=== PATIENT | female | born 1995 | race American Indian/Alaskan Native ===

== ENCOUNTER 2018-10-09 20:28 | Emergency (ER) | payer SELFPAY ==
--- NOTE | 2018-10-09 21:18 | EDPHYS ---
Physician Documentation [facility] Name: Aleyda Barker Age: 23 yrs Sex: Female : 1995 Arrival Date: 10/09/2018 Time: 20:30 Bed 9 Private MD: ED Physician Sudeep Ross HPI: 10/09 21:13 This 23 yrs old Female presents to ER via Ambulatory with complaints of Foot Pain, jr8 ABCESS. 21:13 Onset: The symptoms/episode began/occurred gradually, 2 day(s) ago. Modifying factors: jr8 The symptoms are alleviated by nothing. the symptoms are aggravated by movement. Associated signs and symptoms: The patient has no apparent associated signs or symptoms. Severity of symptoms: At their worst the symptoms were mild, in the emergency department the symptoms are unchanged. The patient has not experienced similar symptoms in the past. The patient has not recently seen a physician. Patient had just returned to work and had been off for a while. Got a blister on top of 5th digit right foot. Now thinks it is infected. 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 - Social history:: Smoking status: Patient uses tobacco products, denies chronic smoking, but will smoke occasionally. - Ebola Screening: : Patient negative for fever greater than or equal to 101.5 degrees Fahrenheit, and additional compatible Ebola Virus Disease symptoms Patient denies exposure to infectious person Patient denies travel to an Ebola-affected area in the 21 days before illness onset No symptoms or risks identified at this time. ROS: 21:13 Eyes: Negative for injury, pain, redness, and discharge, ENT: Negative for injury, jr8 pain, and discharge, Neck: Negative for injury, pain, and swelling, Cardiovascular: Negative for chest pain, palpitations, and edema, Respiratory: Negative for shortness of breath, cough, wheezing, and pleuritic chest pain, Abdomen/GI: Negative for abdominal pain, nausea, vomiting, diarrhea, and constipation, Back: Negative for injury and pain, MS/Extremity: Negative for injury and deformity, Neuro: Negative for headache, weakness, numbness, tingling, and seizure. 21:13 Skin: Positive for lesions, of the right fifth toe. Exam: 21:13 Constitutional: This is a well developed, well nourished patient who is awake, alert, jr8 and in no acute distress. Cardiovascular: Regular rate and rhythm with a normal S1 and S2. No gallops, murmurs, or rubs. Normal PMI, no JVD. No pulse deficits. Respiratory: Lungs have equal breath sounds bilaterally, clear to auscultation and percussion. No rales, rhonchi or wheezes noted. No increased work of breathing, no retractions or nasal flaring. MS/ Extremity: Pulses equal, no cyanosis. Neurovascular intact. Full, normal range of motion. Neuro: Awake and alert, GCS 15, oriented to person, place, time, and situation. Cranial nerves II-XII grossly intact. Motor strength 5/5 in all extremities. Sensory grossly intact. Cerebellar exam normal. Normal gait. 21:13 Skin: Patient has small blister to right 5th digit top of toe. Mild purulent discharge noted. No surrounding cellulitis . Vital Signs: 20:55 BP 107 / 71; Pulse 81; Resp 16; Temp 98.3; Pulse Ox 98% on R/A; Weight 113.4 kg; Height aj 5 ft. 7 in. (170.18 cm); 21:24 BP 101 / 70; Pulse 84; Resp 17; Pulse Ox 99% on R/A; aj 20:55 Body Mass Index 39.16 (113.40 kg, 170.18 cm) MDM: 20:39 Patient medically screened. [facility] 21:16 Data reviewed: vital signs, nurses notes, lab test result(s), and as a result, I will [facility] discharge patient. Data interpreted: Pulse oximetry: on room air is 98 %. Interpretation: normal. Counseling: I had a detailed discussion with the patient and/or guardian regarding: the historical points, exam findings, and any diagnostic results supporting the discharge/admit diagnosis, lab results, the need for outpatient follow up, a family practitioner, to return to the emergency department if symptoms worsen or persist or if there are any questions or concerns that arise at home. 10/09 21:16 Order name: Wound Culture [facility] Administered Medications: No medications were administered Disposition: 10/09/18 21:17 Discharged to Home. Impression: Local infection of the skin and subcutaneous tissue, unspecified. - Condition is Stable. - Discharge Instructions: Skin Abscess. - Prescriptions for Bactrim DS 800- 160 mg Oral Tablet - take 1 tablet by ORAL route every 12 hours for 10 days; 20 tablet. - Work release form, Medication Reconciliation Form, Thank You Letter, Antibiotic Education, Prescription Opioid Use form. - Follow up: Private Physician; When: 5 - 6 days; Reason: Wound Recheck, Recheck today's complaints, Continuance of care, Re-evaluation by your physician. - Problem is new. - Symptoms have improved. Addendum: 10/10/2018 22:31 Co-signature as Attending Physician, Sudeep Ross MD I agree with the assessment and t w4 plan of care. Signatures: Dispatcher [employer] EDGladys Wolf RN RN Gilberto Rodríguez, PA PA jr8 Sudeep Ross MD MD tw4 Corrections: (The following items were deleted from the chart) 10/09 21:27 21:17 10/09/2018 21:17 Discharged to Home. Impression: Local infection of the skin and aj subcutaneous tissue, unspecified. Condition is Stable. Forms are Medication Reconciliation Form, Thank You Letter, Antibiotic Education, Prescription Opioid Use. Follow up: Private Physician; When: 5 - 6 days; Reason: Wound Recheck, Recheck today's complaints, Continuance of care, Re-evaluation by your physician. Problem is new. Symptoms have improved. jr8
--- NOTE | 2018-10-09 21:18 | ER ---
Nurse's Notes [facility] Name: Aleyda Barker Age: 23 yrs Sex: Female : 1995 Arrival Date: 10/09/2018 Time: 20:30 Bed 9 Private MD: Diagnosis: Local infection of the skin and subcutaneous tissue, unspecified Presentation: 10/09 20:54 Presenting complaint: Patient states: Blister to right 5 th toe for 2 days. Transition aj of care: patient was not received from another setting of care. Onset of symptoms was October 07, 2018. Risk Assessment: Do you want to hurt yourself or someone else? Patient reports no desire to harm self or others. Initial Sepsis Screen: Does the patient meet any 2 criteria? No. Patient's initial sepsis screen is negative. Does the patient have a suspected source of infection? No. Patient's initial sepsis screen is negative. Care prior to arrival: None. 20:54 Method Of Arrival: Ambulatory aj 20:54 Acuity: HOLLAND 4 aj Triage Assessment: 20:55 General: Appears in no apparent distress. comfortable, Behavior is calm, cooperative, aj appropriate for age. Pain: Complains of pain in right fifth toe. Neuro: Level of Consciousness is awake, alert, obeys commands, Oriented to person, place, time, situation, Appropriate for age. Respiratory: Airway is patent Trachea midline Respiratory effort is even, unlabored, Respiratory pattern is regular, symmetrical. Derm: Skin is intact, is healthy with good turgor, Skin is pink, warm \T\ dry. normal. Derm: Wound noted right fifth toe. 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 - Social history:: Smoking status: Patient uses tobacco products, denies chronic smoking, but will smoke occasionally. - Ebola Screening: : Patient negative for fever greater than or equal to 101.5 degrees Fahrenheit, and additional compatible Ebola Virus Disease symptoms Patient denies exposure to infectious person Patient denies travel to an Ebola-affected area in the 21 days before illness onset No symptoms or risks identified at this time. Screenin:24 Abuse screen: Denies threats or abuse. Denies injuries from another. Nutritional aj screening: No deficits noted. Tuberculosis screening: No symptoms or risk factors identified. Fall Risk None identified. Assessment: 21:24 Reassessment: See triage. aj Vital Signs: 20:55 BP 107 / 71; Pulse 81; Resp 16; Temp 98.3; Pulse Ox 98% on R/A; Weight 113.4 kg; Height aj 5 ft. 7 in. (170.18 cm); 21:24 BP 101 / 70; Pulse 84; Resp 17; Pulse Ox 99% on R/A; aj 20:55 Body Mass Index 39.16 (113.40 kg, 170.18 cm) aj ED Course: 20:30 Patient arrived in ED. al2 20:39 Gilberto Kelly PA is PHCP. jr8 20:39 Sudeep Ross MD is Attending Physician. jr8 20:54 Gladys Lerner, RN is Primary Nurse. aj 20:55 Triage completed. aj 20:55 Arm band placed on left wrist. Patient placed in an exam room. aj 21:24 Patient has correct armband on for positive identification. aj 21:24 No provider procedures requiring assistance completed. Patient did not have IV access aj during this emergency room visit. 21:27 Wound Culture Sent. aj Administered Medications: No medications were administered Outcome: 21:17 Discharge ordered by . jr8 21:24 Discharged to home ambulatory. aj 21:24 Condition: good 21:24 Discharge instructions given to patient, Instructed on discharge instructions, follow up and referral plans. Demonstrated understanding of instructions, follow-up care, medications, Prescriptions given X 1. 21:27 Patient left the ED. aj Addendum: 10/14/2018 07:46 Addendum: Culture Results: Positive wound culture. Phone call Attempt #[phone], left a a5 voicemail. 10/15/2018 11:13 Addendum: Culture Results: Phone call Attempt #[phone], left voicemail. a a5 Signatures: Gladys Lerner, RN RN Idania Pierre RN RN aaGilberto Hewitt PA PA jr8 Love, Angelica al2
== END 2018-10-09 21:27 | disposition home or self-care (01) ==
LOC: ER 20:28
DX: M79.674 Pain in right toe(s) (principal); L08.9 Local infection of the skin and subcutaneous tissue, unspecified; Z72.0 Tobacco use
CPT/HCPCS: 87070; 87205; 99283

== ENCOUNTER 2018-12-01 14:47 | Emergency (ER) | payer SELFPAY ==
[2018-12-01] MEDS ORDERED: FLUCONAZOLE 100 MG TAB ONE (15:40)
--- NOTE | 2018-12-01 15:49 | EDPHYS ---
Physician Documentation [facility] Name: Aleyda Barker Age: 23 yrs Sex: Female : 1995 Arrival Date: 12/01/2018 Time: 14:49 Bed 9 Private MD: ED Physician Miki Juarez HPI: 12/02 02:17 This 23 yrs old Other Female presents to ER via Ambulatory with complaints of Rash. snw 02:17 The patient's rash thought to be caused by Dermatitis. The rash is located on the snw pelvis. The rash can be described as erythematous, macular, patchy. Onset: The symptoms/episode began/occurred suddenly, and became persistent. Associated signs and symptoms: Pertinent positives: burning sensation, itching. Severity of symptoms: At their worst the symptoms were moderate in the emergency department the symptoms are unchanged. Treatment given at home: OTC lotion/cream. The patient has experienced a previous episode. It is unknown whether or not the patient has recently seen a physician. Historical: - Allergies: 12/01 14:55 No Known Allergies; sv - PMHx: 14:55 None; sv - PSHx: 14:55 None; sv - Immunization history:: Adult Immunizations up to date. - Social history:: Smoking status: Patient/guardian denies using tobacco. - Ebola Screening: : Patient negative for fever greater than or equal to 101.5 degrees Fahrenheit, and additional compatible Ebola Virus Disease symptoms Patient denies exposure to infectious person Patient denies travel to an Ebola-affected area in the 21 days before illness onset No symptoms or risks identified at this time. ROS: 12/02 02:11 Constitutional: Negative for fever, chills, and weight loss, Eyes: Negative for injury, snw pain, redness, and discharge, ENT: Negative for injury, pain, and discharge, Neck: Negative for injury, pain, and swelling, Cardiovascular: Negative for chest pain, palpitations, and edema, Respiratory: Negative for shortness of breath, cough, wheezing, and pleuritic chest pain, Abdomen/GI: Negative for abdominal pain, nausea, vomiting, diarrhea, and constipation, Back: Negative for injury and pain, MS/Extremity: Negative for injury and deformity, Skin: Negative for injury, rash, and discoloration, Neuro: Negative for headache, weakness, numbness, tingling, and seizure, Psych: Negative for depression, anxiety, suicide ideation, homicidal ideation, and hallucinations. : Positive for perineal rash with itching and tenderness. Exam: 02:11 Constitutional: This is a well developed, well nourished patient who is awake, alert, snw and in no acute distress. Head/Face: Normocephalic, atraumatic. Eyes: Pupils equal round and reactive to light, extra-ocular motions intact. Lids and lashes normal. Conjunctiva and sclera are non-icteric and not injected. Cornea within normal limits. Periorbital areas with no swelling, redness, or edema. ENT: Nares patent. No nasal discharge, no septal abnormalities noted. Tympanic membranes are normal and external auditory canals are clear. Oropharynx with no redness, swelling, or masses, exudates, or evidence of obstruction, uvula midline. Mucous membranes moist. Neck: Trachea midline, no thyromegaly or masses palpated, and no cervical lymphadenopathy. Supple, full range of motion without nuchal rigidity, or vertebral point tenderness. No Meningismus. Acanthosis nigricans Chest/axilla: Normal chest wall appearance and motion. Nontender with no deformity. No lesions are appreciated. Cardiovascular: Regular rate and rhythm with a normal S1 and S2. No gallops, murmurs, or rubs. Normal PMI, no JVD. No pulse deficits. Respiratory: Lungs have equal breath sounds bilaterally, clear to auscultation and percussion. No rales, rhonchi or wheezes noted. No increased work of breathing, no retractions or nasal flaring. Abdomen/GI: Soft, non-tender, with normal bowel sounds. No distension or tympany. No guarding or rebound. No evidence of tenderness throughout. Back: No spinal tenderness. No costovertebral tenderness. Full range of motion. MS/ Extremity: Pulses equal, no cyanosis. Neurovascular intact. Full, normal range of motion. Neuro: Awake and alert, GCS 15, oriented to person, place, time, and situation. Cranial nerves II-XII grossly intact. Motor strength 5/5 in all extremities. Sensory grossly intact. Cerebellar exam normal. Normal gait. Psych: Awake, alert, with orientation to person, place and time. Behavior, mood, and affect are within normal limits. 02:11 Skin: Appearance: normal except for affected area, groin with tinea appearing rash, may just be acanthosis as well, FSBS within normal. Vital Signs: 12/01 14:55 BP 99 / 57; Pulse 89; Resp 20; Temp 98; Pulse Ox 100% ; Weight 99.79 kg; Height 5 ft. 6 sv in. (167.64 cm); Pain 0/10; 16:00 BP 100 / 60; Pulse 89; Resp 20; Temp 98; Pulse Ox 100% ; dm5 14:55 Body Mass Index 35.51 (99.79 kg, 167.64 cm) sv MDM: 15:06 Patient medically screened. snw 12/02 02:16 Data reviewed: vital signs, nurses notes. Data interpreted: Pulse oximetry: on room air snw is 100 %. Interpretation: normal. Counseling: I had a detailed discussion with the patient and/or guardian regarding: the historical points, exam findings, and any diagnostic results supporting the discharge/admit diagnosis, the need for outpatient follow up, to return to the emergency department if symptoms worsen or persist or if there are any questions or concerns that arise at home. Special discussion: Based on the history and exam findings, there is no indication for further emergent testing or inpatient evaluation. I discussed with the patient/guardian the need to see the industrial maintenance technician for further evaluation of the symptoms. 12/01 15:11 Order name: MAURI; Complete Time: 15:17 kdr Administered Medications: 12/01 15:38 Drug: DiFLUcan 200 mg Route: PO; dm5 16:30 Follow up: Response: No adverse reaction; No change in condition dm5 Point of Care Testing: Blood Glucose: 15:17 Blood Glucose: 108 mg/dL; ms Ranges: Critical Glucose Levels:Adult <50 mg/dl or >400 mg/dl <40 mg/dl or >180 mg/dl Disposition: 12/01/18 15:48 Discharged to Home. Impression: Rash and other nonspecific skin eruption, Candidiasis, unspecified. - Condition is Stable. - Discharge Instructions: Rash, Tinea Versicolor, [id number]. - Prescriptions for Clotrimazole 1 % Topical Cream - Apply to affected area 1 application by TOPICAL route every 12 hours; 15 gram. Diflucan 150 mg Oral Tablet - take 1 tablet by ORAL route one time for 1 day Take next Tuesday; 1 tablet. Zyrtec 10 mg Oral Tablet - take 1 tablet by ORAL route once daily As needed; 20 tablet. - Work release form, Medication Reconciliation Form, Thank You Letter, Antibiotic Education, Prescription Opioid Use form. - Follow up: Emergency Department; When: As needed; Reason: Worsening of condition. Follow up: Private Physician; When: 2 - 3 days; Reason: Recheck today's complaints, Continuance of care, Re-evaluation by your physician. Addendum: 12/04/2018 07:25 Co-signature as Attending Physician, Miki Juarez MD I agree with the assessment and k dr plan of care. Signatures: Allyson Pandya, RN RN dm5 Shannon Avalos RN Miki Katz MD MD [facility] Anel Locke, SNUFF MAKER-C SNUFF MAKER-[facility] Blanca Riggs Corrections: (The following items were deleted from the chart) 12/01 16:07 15:48 12/01/2018 15:48 Discharged to Home. Impression: Rash and other nonspecific skin eb eruption; Candidiasis, unspecified. Condition is Stable. Forms are Medication Reconciliation Form, Thank You Letter, Antibiotic Education, Prescription Opioid Use. Follow up: Emergency Department; When: As needed; Reason: Worsening of condition. Follow up: Private Physician; When: 2 - 3 days; Reason: Recheck today's complaints, Continuance of care, Re-evaluation by your physician. snw
--- NOTE | 2018-12-01 15:49 | ER ---
Nurse's Notes [facility] Name: Aleyda Barker Age: 23 yrs Sex: Female : 1995 Arrival Date: 12/01/2018 Time: 14:49 Bed 9 Private MD: Diagnosis: Rash and other nonspecific skin eruption;Candidiasis, unspecified Presentation: 12/01 14:54 Presenting complaint: Patient states: right groin rash and itching x 1 month. Reports sv she has been seen for it before and was told it was jock itch and to use OTC meds, but it has no improved. Transition of care: patient was not received from another setting of care. Onset of symptoms was October 2018. Care prior to arrival: None. 14:54 Method Of Arrival: Ambulatory sv 14:54 Acuity: HOLLAND 5 sv 16:00 Risk Assessment: Do you want to hurt yourself or someone else? Patient reports no dm5 desire to harm self or others. Initial Sepsis Screen: Does the patient meet any 2 criteria? No. Patient's initial sepsis screen is negative. Does the patient have a suspected source of infection? No. Patient's initial sepsis screen is negative. Triage Assessment: 14:56 General: Appears in no apparent distress. comfortable, Behavior is calm, cooperative, sv appropriate for age. Neuro: Level of Consciousness is awake, alert, obeys commands, Oriented to person, place, time, situation, Gait is steady. Respiratory: Respiratory effort is even, unlabored, Respiratory pattern is regular, symmetrical. Derm: Reports itching, rash. Historical: - Allergies: 14:55 No Known Allergies; sv - PMHx: 14:55 None; sv - PSHx: 14:55 None; sv - Immunization history:: Adult Immunizations up to date. - Social history:: Smoking status: Patient/guardian denies using tobacco. - Ebola Screening: : Patient negative for fever greater than or equal to 101.5 degrees Fahrenheit, and additional compatible Ebola Virus Disease symptoms Patient denies exposure to infectious person Patient denies travel to an Ebola-affected area in the 21 days before illness onset No symptoms or risks identified at this time. Screenin:00 Abuse screen: Denies threats or abuse. Denies injuries from another. Nutritional dm5 screening: No deficits noted. Tuberculosis screening: No symptoms or risk factors identified. Fall Risk None identified. Assessment: 15:15 General: Appears in no apparent distress. Pain: Complains of pain in right femoral dm5 area. Neuro: Level of Consciousness is awake, alert, obeys commands, Oriented to person, place, time, situation. Respiratory: Airway is patent Respiratory effort is even, unlabored, relaxed, Respiratory pattern is regular, symmetrical. Derm: Rash noted that is itchy, red. Vital Signs: 14:55 BP 99 / 57; Pulse 89; Resp 20; Temp 98; Pulse Ox 100% ; Weight 99.79 kg; Height 5 ft. 6 sv in. (167.64 cm); Pain 0/10; 16:00 BP 100 / 60; Pulse 89; Resp 20; Temp 98; Pulse Ox 100% ; dm5 14:55 Body Mass Index 35.51 (99.79 kg, 167.64 cm) sv ED Course: 14:49 Patient arrived in ED. as 14:55 Triage completed. sv 14:56 Arm band placed on Patient placed in waiting room, Patient notified of wait time. sv 14:58 Anel Locke [facility]C [facility]. snw 14:58 Miki Juarez MD is Attending Physician. snw 15:37 Allyson Pandya, HEMAL is Primary Nurse. dm5 16:00 Patient has correct armband on for positive identification. dm5 16:00 No provider procedures requiring assistance completed. Patient did not have IV access dm5 during this emergency room visit. Administered Medications: 15:38 Drug: DiFLUcan 200 mg Route: PO; dm5 16:30 Follow up: Response: No adverse reaction; No change in condition dm5 Point of Care Testing: Blood Glucose: 15:17 Blood Glucose: 108 mg/dL; ms Ranges: Outcome: 15:48 Discharge ordered by . snw 16:00 Discharged to home ambulatory. dm5 16:00 Condition: good 16:00 Discharge instructions given to patient, Instructed on discharge instructions, follow up and referral plans. medication usage, Demonstrated understanding of instructions, follow-up care, medications. 16:07 Patient left the ED. eb Signatures: Allyson Pandya, RN HEMAL dm5 Shannon Avalos RN RN sv Anel Locke FNP-C GLOST KILN OPERATOR-Iva Latham Maria ms Botello, Elizabeth eb Corrections: (The following items were deleted from the chart) 14:57 14:55 Pulse 89bpm; Resp 20bpm; Pulse Ox 100%; Temp 98F; 99.79 kg; Height 5 ft. 6 in.; sv BMI: 35.5; Pain 0/10; sv
== END 2018-12-01 16:07 | disposition home or self-care (01) ==
LOC: ER 14:47
DX: B37.9 Candidiasis, unspecified (principal)
CPT/HCPCS: 82962; 99283

== ENCOUNTER 2018-12-06 20:18 | Emergency (ER) | payer SELFPAY ==
--- NOTE | 2018-12-06 20:35 | EDPHYS ---
Physician Documentation [facility] Name: Aleyda Barker Age: 23 yrs Sex: Female : 1995 Arrival Date: 12/06/2018 Time: 20:25 Bed Treatment Private MD: ED Physician Brodie Horne HPI: 12/06 20:32 This 23 yrs old Other Female presents to ER via Unassigned with complaints of Back Pain.kb 20:32 The patient presents with pain that is acute. The symptoms are located in the low back. kb Onset: The symptoms/episode began/occurred 2 day(s) ago. The pain does not radiate. Associated signs and symptoms: The patient has no apparent associated signs or symptoms. The problem was sustained when lifting heavy object. Modifying factors: The patient symptoms are alleviated by nothing, the patient symptoms are aggravated by any movement. Severity of symptoms: At their worst the symptoms were moderate, in the emergency department the symptoms have resolved, 1 day(s) prior to arrival. The patient has not experienced similar symptoms in the past. The patient has not recently seen a physician. Pt reports she pulled something in her back 2 days ago at work and had pain. Reports pain resolved yesterday, but her boss wanted her to get it checked out before she returned.. Historical: - Allergies: 20:28 No Known Allergies; jb4 - Home Meds: 20:28 None [Active]; jb4 - PMHx: 20:28 None; jb4 - PSHx: 20:28 None; jb4 - Immunization history:: Adult Immunizations up to date, Flu vaccine is up to date. - Social history:: Smoking status: Patient/guardian denies using tobacco. - Ebola Screening: : No symptoms or risks identified at this time. ROS: 20:32 Constitutional: Negative for fever, chills, and weight loss, Cardiovascular: Negative kb for chest pain, palpitations, and edema, Respiratory: Negative for shortness of breath, cough, wheezing, and pleuritic chest pain, Abdomen/GI: Negative for abdominal pain, nausea, vomiting, diarrhea, and constipation, : Negative for injury, bleeding, discharge, and swelling, MS/Extremity: Negative for injury and deformity, Skin: Negative for injury, rash, and discoloration, Neuro: Negative for headache, weakness, numbness, tingling, and seizure. 20:32 Back: Positive for pain at rest, pain with movement, of the low back area. Exam: 20:32 Constitutional: This is a well developed, well nourished patient who is awake, alert, kb and in no acute distress. Head/Face: Normocephalic, atraumatic. Neck: Trachea midline, no thyromegaly or masses palpated, and no cervical lymphadenopathy. Supple, full range of motion without nuchal rigidity, or vertebral point tenderness. No Meningismus. Chest/axilla: Normal chest wall appearance and motion. Nontender with no deformity. No lesions are appreciated. Cardiovascular: Regular rate and rhythm with a normal S1 and S2. No gallops, murmurs, or rubs. Normal PMI, no JVD. No pulse deficits. Respiratory: Lungs have equal breath sounds bilaterally, clear to auscultation and percussion. No rales, rhonchi or wheezes noted. No increased work of breathing, no retractions or nasal flaring. Abdomen/GI: Soft, non-tender, with normal bowel sounds. No distension or tympany. No guarding or rebound. No evidence of tenderness throughout. Back: No spinal tenderness. No costovertebral tenderness. Full range of motion. Skin: Warm, dry with normal turgor. Normal color with no rashes, no lesions, and no evidence of cellulitis. MS/ Extremity: Pulses equal, no cyanosis. Neurovascular intact. Full, normal range of motion. Neuro: Awake and alert, GCS 15, oriented to person, place, time, and situation. Cranial nerves II-XII grossly intact. Motor strength 5/5 in all extremities. Sensory grossly intact. Cerebellar exam normal. Normal gait. Vital Signs: 20:28 BP 123 / 65; Pulse 72; Resp 16; Temp 97.3(O); Pulse Ox 97% on R/A; Weight 99.79 kg (R); jb4 Height 5 ft. 7 in. (170.18 cm) (R); Pain 2/10; 20:28 Body Mass Index 34.46 (99.79 kg, 170.18 cm) jb4 MDM: 20:28 Patient medically screened. kb 20:33 Data reviewed: vital signs, nurses notes. Data interpreted: Pulse oximetry: on room air kb is 100 %. Interpretation: normal. Counseling: I had a detailed discussion with the patient and/or guardian regarding: the historical points, exam findings, and any diagnostic results supporting the discharge/admit diagnosis, the need for outpatient follow up, a family practitioner, to return to the emergency department if symptoms worsen or persist or if there are any questions or concerns that arise at home. Administered Medications: No medications were administered Disposition: 23:19 Co-signature as Attending Physician, Brodie Horne MD. Disposition: 12/06/18 20:34 Discharged to Home. Impression: Low back pain. - Condition is Stable. - Discharge Instructions: Back Pain, Adult, [id number], Back Exercises, [id number]. - Work release form, Medication Reconciliation Form, Thank You Letter, Antibiotic Education, Prescription Opioid Use form. - Follow up: Emergency Department; When: As needed; Reason: Worsening of condition. Follow up: Private Physician; When: 2 - 3 days; Reason: Recheck today's complaints, Continuance of care, Re-evaluation by your physician. Signatures: Sujatha Salas FNP-C FNP-Rajat Dyer RN RN jb4 Brodie Horne MD MD Corrections: (The following items were deleted from the chart) 20:47 20:34 12/06/2018 20:34 Discharged to Home. Impression: Low back pain. Condition is jb4 Stable. Forms are Medication Reconciliation Form, Thank You Letter, Antibiotic Education, Prescription Opioid Use. Follow up: Emergency Department; When: As needed; Reason: Worsening of condition. Follow up: Private Physician; When: 2 - 3 days; Reason: Recheck today's complaints, Continuance of care, Re-evaluation by your physician. kb
--- NOTE | 2018-12-06 20:47 | ER ---
Nurse's Notes [facility] Name: Aleyda Barker Age: 23 yrs Sex: Female : 1995 Arrival Date: 12/06/2018 Time: 20:25 Bed Treatment Private MD: Diagnosis: Low back pain Presentation: 12/06 20:28 Presenting complaint: Patient states: I was at work Tuesday, and we were lifting objects jb4 and I think I pulled a muscle in my back. 20:28 Transition of care: patient was not received from another setting of care. Onset of jb4 symptoms was December 04, 2018. Risk Assessment: Do you want to hurt yourself or someone else? Patient reports no desire to harm self or others. Initial Sepsis Screen: Does the patient meet any 2 criteria? No. Patient's initial sepsis screen is negative. Does the patient have a suspected source of infection? No. Patient's initial sepsis screen is negative. Care prior to arrival: None. 20:28 Method Of Arrival: Ambulatory jb4 20:28 Acuity: HOLLAND 4 jb4 Triage Assessment: 20:28 General: Appears in no apparent distress. comfortable, Behavior is calm, cooperative, jb4 appropriate for age. Pain: Complains of pain in back Pain does not radiate. Pain currently is 2 out of 10 on a pain scale. EENT: No signs and/or symptoms were reported regarding the EENT system. Neuro: Level of Consciousness is awake, alert, obeys commands, Oriented to person, place, time, situation. Cardiovascular: Patient's skin is warm and dry. Respiratory: Airway is patent Respiratory effort is even, unlabored, Respiratory pattern is regular, symmetrical. GI: No signs and/or symptoms were reported involving the gastrointestinal system. : No signs and/or symptoms were reported regarding the genitourinary system. Derm: Skin is intact, Skin is pink, warm \T\ dry. Musculoskeletal: Circulation, motion, and sensation intact. Range of motion: intact in all extremities. Historical: - Allergies: 20:28 No Known Allergies; jb4 - Home Meds: 20:28 None [Active]; jb4 - PMHx: 20:28 None; jb4 - PSHx: 20:28 None; jb4 - Immunization history:: Adult Immunizations up to date, Flu vaccine is up to date. - Social history:: Smoking status: Patient/guardian denies using tobacco. - Ebola Screening: : No symptoms or risks identified at this time. Screenin:45 Abuse screen: Denies threats or abuse. Nutritional screening: No deficits noted. jb4 Tuberculosis screening: No symptoms or risk factors identified. Fall Risk None identified. Assessment: 20:45 General: see triage assessment.. Neuro: Level of Consciousness is awake, alert, obeys jb4 commands, Oriented to person, place, time, situation. Vital Signs: 20:28 BP 123 / 65; Pulse 72; Resp 16; Temp 97.3(O); Pulse Ox 97% on R/A; Weight 99.79 kg (R); jb4 Height 5 ft. 7 in. (170.18 cm) (R); Pain 2/10; 20:28 Body Mass Index 34.46 (99.79 kg, 170.18 cm) jb4 ED Course: 20:25 Patient arrived in ED. 20:28 Sujatha Salas FNP-C is [facility]. kb 20:28 Brodie Horne MD is Attending Physician. kb 20:28 Arm band placed on left wrist. jb4 20:42 Rajat Meeks, RN is Primary Nurse. jb4 20:43 Triage completed. jb4 20:45 Patient has correct armband on for positive identification. Bed in low position. Call jb4 light in reach. Side rails up X 1. 20:45 No provider procedures requiring assistance completed. Patient did not have IV access jb4 during this emergency room visit. Administered Medications: No medications were administered Outcome: 20:34 Discharge ordered by . kb 20:45 Discharged to home ambulatory. jb4 20:45 Condition: stable 20:45 Discharge instructions given to patient, Instructed on discharge instructions, follow up and referral plans. medication usage, Demonstrated understanding of instructions, follow-up care, medications. 20:47 Patient left the ED. jb4 Signatures: Sujatha Salas FNP-C FNP-Cheryl Heath James, RN RN jb4
== END 2018-12-06 20:47 | disposition home or self-care (01) ==
LOC: ER 20:18
DX: M54.5 Low back pain (principal); X50.0XXA Overexertion from strenuous movement or load, initial encounter; Y93.89 Activity, other specified; Y92.9 Unspecified place or not applicable
CPT/HCPCS: 99281

== ENCOUNTER 2018-12-12 19:24 | Emergency (ER) | payer SELFPAY ==
--- NOTE | 2018-12-12 20:14 | ER ---
Nurse's Notes [facility] Name: Aleyda Barker Age: 23 yrs Sex: Female : 1995 Arrival Date: 12/12/2018 Time: 19:25 Bed 11 Private MD: Diagnosis: Other local infections of skin and subcutaneous tissue Presentation: 12/12 19:31 Presenting complaint: Patient states: Sores to lower legs, buttocks, both feet x 1 lp1 week; Began as mosquito bites but have not improved; States possible fever with chills at home. Transition of care: patient was not received from another setting of care. Onset of symptoms was December 12, 2018. Risk Assessment: Do you want to hurt yourself or someone else? Patient reports no desire to harm self or others. Care prior to arrival: None. 19:31 Method Of Arrival: Ambulatory lp1 19:31 Acuity: HOLLAND 4 lp1 19:35 Initial Sepsis Screen: Does the patient meet any 2 criteria? No. Patient's initial lp1 sepsis screen is negative. Does the patient have a suspected source of infection? No. Patient's initial sepsis screen is negative. Triage Assessment: 20:50 General: Appears in no apparent distress. Behavior is calm, cooperative. 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 - Social history:: Smoking status: Patient uses tobacco products, denies chronic smoking, but will smoke occasionally. - Ebola Screening: : No symptoms or risks identified at this time. Screenin:49 Abuse screen: Denies threats or abuse. Denies injuries from another. Nutritional ls4 screening: No deficits noted. Tuberculosis screening: No symptoms or risk factors identified. Fall Risk None identified. Assessment: 20:48 Pain: Complains of pain in sores. Neuro: No deficits noted. Cardiovascular: No deficits ls4 noted. Respiratory: No deficits noted. Derm: multiple round scabbed lesions to legs, buttocks and feet. Musculoskeletal: No deficits noted. 20:51 Reassessment: Patient appears in no apparent distress at this time. Patient is alert, ls4 oriented x 3, equal unlabored respirations, skin warm/dry/pink. Vital Signs: 19:34 BP 121 / 66; Pulse 85; Resp 18; Temp 99.1(O); Pulse Ox 99% on R/A; Weight 99.79 kg (R); lp1 Height 5 ft. 6 in. (167.64 cm); Pain 7/10; 19:34 Body Mass Index 35.51 (99.79 kg, 167.64 cm) lp1 ED Course: 19:25 Patient arrived in ED. es 19:33 Triage completed. lp1 19:33 Arm band placed on right wrist. lp1 19:38 [facility]. cp 19:39 Sudeep Ross MD is Attending Physician. clara 19:46 Silvia Childers, RN is Primary Nurse. ls4 20:02 Patient has correct armband on for positive identification. Bed in low position. Call ls4 light in reach. Side rails up X 1. 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 Patient did not have IV access during this emergency room ls4 visit. Administered Medications: No medications were administered Outcome: 20:14 Discharge ordered by MD. cp 20:51 Discharged to home ambulatory, with family. ls4 20:51 Condition: stable 20:51 Discharge instructions given to patient, family, Instructed on discharge instructions, follow up and referral plans. medication usage, Demonstrated understanding of instructions, follow-up care, medications, Prescriptions given X 2. 20:51 Patient left the ED. ls4 Signatures: Cheryl Reyes Laura, RN RN lp1 Ernst Albarran PA PA cp Stewart, Lisa, RN RN ls4
--- NOTE | 2018-12-12 20:15 | EDPHYS ---
Physician Documentation [facility] Name: Aleyda Barker Age: 23 yrs Sex: Female : 1995 Arrival Date: 12/12/2018 Time: 19:25 Bed 11 Private MD: ED Physician Sudeep Ross HPI: 12/12 20:12 This 23 yrs old Other Female presents to ER via Ambulatory with complaints of Sores on cp legs and butt. 20:12 Patient reports noticing increasing open wounds on buttocks and legs for the past week. cp Patient reports wounds appear initially like blisters and then open and drain. 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 - Social history:: Smoking status: Patient uses tobacco products, denies chronic smoking, but will smoke occasionally. - Ebola Screening: : No symptoms or risks identified at this time. ROS: 20:12 Constitutional: Negative for body aches, chills, fever, poor PO intake. cp 20:12 Eyes: Negative for injury, pain, redness, and discharge. cp 20:12 Cardiovascular: Negative for chest pain. 20:12 Respiratory: Negative for shortness of breath, wheezing. 20:12 Abdomen/GI: Negative for abdominal pain. 20:12 Skin: Positive for of the buttocks, right leg and left leg, multiple open wounds. 20:12 All other systems are negative. Exam: 20:13 Constitutional: The patient appears in no acute distress, alert, awake, non-toxic, well cp developed, well nourished. 20:13 Head/Face: Normocephalic, atraumatic. cp 20:13 Eyes: Periorbital structures: appear normal, Conjunctiva: normal, no exudate, no injection, Lids and lashes: appear normal, bilaterally. 20:13 ENT: External ear(s): are unremarkable, Nose: is normal, Mouth: is normal, Posterior pharynx: Airway: no evidence of obstruction, patent. 20:13 Chest/axilla: Inspection: normal. 20:13 Cardiovascular: Rate: normal. 20:13 Respiratory: the patient does not display signs of respiratory distress, Respirations: normal, no use of accessory muscles, no retractions, no splinting, no tachypnea. 20:13 Abdomen/GI: Exam negative for discomfort, distension, guarding. 20:13 Skin: noted multiple scattered small skin ulcerations with mild erythema and swelling, no abscess noted. Vital Signs: 19:34 BP 121 / 66; Pulse 85; Resp 18; Temp 99.1(O); Pulse Ox 99% on R/A; Weight 99.79 kg (R); lp1 Height 5 ft. 6 in. (167.64 cm); Pain 7/10; 19:34 Body Mass Index 35.51 (99.79 kg, 167.64 cm) lp1 MDM: 19:39 Patient medically screened. cp 20:00 Differential Diagnosis MRSA, staph skin infection, abscess, cellulitis. cp 20:14 Data reviewed: vital signs, nurses notes, and as a result, I will discharge patient. 20:14 Counseling: I had a detailed discussion with the patient and/or guardian regarding: the cp historical points, exam findings, and any diagnostic results supporting the discharge/admit diagnosis, to return to the emergency department if symptoms worsen or persist or if there are any questions or concerns that arise at home. Administered Medications: No medications were administered Disposition: 12/13 06:10 Co-signature as Attending Physician, Sudeep Ross MD I agree with the assessment and 4 plan of care. Disposition: 12/12/18 20:14 Discharged to Home. Impression: Other local infections of skin and subcutaneous tissue. - Condition is Stable. - Discharge Instructions: Staphylococcal Infection. - Prescriptions for Bactrim DS 800- 160 mg Oral Tablet - take 1 tablet by ORAL route every 12 hours for 10 days; 20 tablet. Bactroban 2 % Topical Cream - Apply to affected area 1 application by TOPICAL route every 12 hours; 30 gram. - Medication Reconciliation Form, Thank You Letter, Antibiotic Education, Prescription Opioid Use form. - Follow up: Private Physician; When: 2 - 3 days; Reason: Recheck today's complaints. - Problem is new. - Symptoms are unchanged. Signatures: Zena Siu RN RN lp1 Ernst Albarran PA PA cp Wadley, Terrence, MD MD tw4 Silvia Childers, RN RN ls4 Corrections: (The following items were deleted from the chart) 12/12 20:39 20:14 12/12/2018 20:14 Discharged to Home. Impression: Methicillin resistant cp Staphylococcus aureus infection, unspecified site. Condition is Stable. Forms are Medication Reconciliation Form, Thank You Letter, Antibiotic Education, Prescription Opioid Use. Follow up: Private Physician; When: 2 - 3 days; Reason: Recheck today's complaints. Problem is new. Symptoms are unchanged. cp 20:51 20:39 12/12/2018 20:14 Discharged to Home. Impression: Other local infections of skin ls4 and subcutaneous tissue. Condition is Stable. Discharge Instructions: MRSA Infection, Adult. Prescriptions for Bactrim DS 800-160 mg Oral Tablet - take 1 tablet by ORAL route every 12 hours for 10 days; 20 tablet. and Forms are Medication Reconciliation Form, Thank You Letter, Antibiotic Education, Prescription Opioid Use. Follow up: Private Physician; When: 2 - 3 days; Reason: Recheck today's complaints. Problem is new. Symptoms are unchanged. cp
== END 2018-12-12 20:51 | disposition home or self-care (01) ==
LOC: ER 19:24
DX: L08.89 Other specified local infections of the skin and subcutaneous tissue (principal); Z72.0 Tobacco use
CPT/HCPCS: 99282

== ENCOUNTER 2019-01-21 13:45 | Emergency (ER) | payer SELFPAY ==
[2019-01-21] MEDS ORDERED: NA CHLORIDE 0.9% 1,000 ML ONE (14:29)
[2019-01-21 14:36] LABS: Absolute Lymphocytes (CBC) 2.6 K/uL (0.7-4.9); Absolute Monocytes 0.8 K/uL (0.1-1.3); Absolute Neutrophil 7.8 K/uL (1.8-8.0); Basophils % 0.4 % (0-1.3); Eosinophils % 1.2 % (0-4.4); Hematocrit 40.3 % (36.0-45.0); Lymphocytes % 22.7 % (15.3-44.8); MPV 8.1 fL (7.6-11.3); Monocytes % 7.4 % (3.3-12.3); Protime INR 1.11; RBC Red Blood Cell Count 4.84 M/uL (3.86-4.86)
[2019-01-21 14:47] LABS: ALT/SGPT 29 U/L (12-78); AST/SGOT 16 U/L (15-37); Albumin 3.7 g/dL (3.4-5.0); Alkaline Phosphatase 83 U/L (45-117); BUN Blood Urea Nitrogen 8 mg/dL (7-18); Bicarbonate 21 mmol/L (21-32); Bilirubin Direct 0.1 mg/dL (0-0.2); Bilirubin Total 0.2 mg/dL (0.2-1.0); Glucose Level 88 mg/dL (74-106); Potassium 3.2 mmol/L (3.5-5.1); Protein, Total 8.2 g/dL (6.4-8.2); Sodium Level 146 mmol/L (136-145)
--- NOTE | 2019-01-21 15:53 | RAD REPORT ---
EXAM DESCRIPTION: CT - [id number] - 01/21/2019 3:38 pm CLINICAL HISTORY: Trauma, head and neck injury. fall down 6 steps, dizzy COMPARISON: <Comparisons> TECHNIQUE: Axial 5 mm thick images of the head were obtained. Axial 2 mm thick images of the cervical spine were obtained with sagittal and coronal reconstruction images generated and reviewed. All CT scans are performed using dose optimization technique as appropriate and may include automated exposure control or mA/KV adjustment according to patient size. FINDINGS: CT HEAD WITHOUT CONTRAST: No acute hemorrhage, hydrocephalus or extra-axial collection is identified.No areas of brain edema or midline shift. The paranasal sinuses and mastoids are clear.The calvarium is intact. CT CERVICAL SPINE WITHOUT CONTRAST: No fracture or subluxation.No prevertebral soft tissues swelling is identified. IMPRESSION: No acute intracranial or cervical spine findings.
[2019-01-21] MEDS ORDERED: POTASSIUM CL SA 10 MEQ TAB PO ONE (15:54)
--- NOTE | 2019-01-21 15:56 | RAD REPORT ---
EXAM DESCRIPTION: CT - CTFB CLINICAL HISTORY: FACIAL PAIN Trauma, facial pain and swelling. COMPARISON: <Comparisons> TECHNIQUE: Axial 2 mm thick images of the face were obtained with sagittal and coronal reconstructio n images. All CT scans are performed using dose optimization technique as appropriate and may include automated exposure control or mA/KV adjustment according to patient size. FINDINGS: No acute facial bone fracture is seen.The mandible is intact. The globes and orbital contents are grossly unremarkable.The paranasal sinuses and mastoids are clear . IMPRESSION: Negative for facial bone fracture.
--- NOTE | 2019-01-21 17:43 | EDPHYS ---
Physician Documentation [facility] Name: Aleyda Barker Age: 23 yrs Sex: Female : 1995 Arrival Date: 01/21/2019 Time: 13:45 Bed 7 Private MD: ED Physician Saad Pennington HPI: 01/21 14:19 This 23 yrs old Other Female presents to ER via Ambulatory with complaints of Fall rn Injury. 14:19 Details of fall: The patient fell from a height, from a ladder. Onset: The rn symptoms/episode began/occurred yesterday. Associated injuries: The patient sustained injury to the head, neck injury. Severity of symptoms: At their worst the symptoms were mild, in the emergency department the symptoms are unchanged. The patient has not experienced similar symptoms in the past. Reports fall from a few stairs last night while drinking, feels sore and lightheaded, took 6 extra strength tylenol vs excedrine, and 5 bactrim thinking it was a pain medication, denies suicidal ideation or attempt. Person with her verifies and states just trying to get rid of soreness. Reports feels lightheaded and dizzy, no sob/chest pain/abd pain/vomiting/diarrhea. . 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 - Social history:: Smoking status: Patient uses tobacco products, denies chronic smoking, but will smoke occasionally. - Ebola Screening: : No symptoms or risks identified at this time. - Family history:: not pertinent. - Hospitalizations: : No recent hospitalization is reported. ROS: 14:19 Constitutional: Negative for fever, chills, and weight loss, Eyes: Negative for injury, rn pain, redness, and discharge, ENT: + left facial pain Neck: + posterior neck soreness Cardiovascular: Negative for chest pain, palpitations, and edema, Respiratory: Negative for shortness of breath, cough, wheezing, and pleuritic chest pain, Abdomen/GI: Negative for abdominal pain, nausea, vomiting, diarrhea, and constipation, MS/Extremity: Negative for injury and deformity, Skin: Negative for injury, rash, and discoloration, Neuro: Negative for numbness, tingling, and seizure, + mild headache Exam: 14:19 Constitutional: This is a well developed, well nourished patient who is awake, alert, rn and in no acute distress. Ambulatory to room. Head/Face: Normocephalic, mild swelling left upper lip, no laceration Eyes: Pupils equal round and reactive to light, extra-ocular motions intact. Lids and lashes normal. Conjunctiva and sclera are non-icteric and not injected. Cornea within normal limits. Periorbital areas with no swelling, redness, or edema. ENT: dry MM Neck: Trachea midline, no thyromegaly or masses palpated, and no cervical lymphadenopathy. Supple, full range of motion without nuchal rigidity, or vertebral point tenderness. No Meningismus. Skin: Warm, dry MS/ Extremity: Pulses equal, no cyanosis. Neurovascular intact. Full, normal range of motion. Equal circumference. Neuro: Awake and alert, GCS 15, oriented to person, place, time, and situation. Cranial nerves II-XII grossly intact. Motor strength 5/5 in all extremities. Sensory grossly intact. Cerebellar exam normal. Normal gait. Vital Signs: 13:53 BP 125 / 82; Pulse 105; Resp 18; Temp 97.8; Pulse Ox 98% on R/A; Weight 104.33 kg; la1 Height 5 ft. 6 in. (167.64 cm); Pain 0/10; 16:13 BP 126 / 77; Pulse 103; Resp 16; Pulse Ox 98% ; bp 17:50 BP 131 / 75; Pulse 95; Resp 16; Temp 98; Pulse Ox 99% ; bp 13:53 Body Mass Index 37.12 (104.33 kg, 167.64 cm) la1 MDM: 13:55 Patient medically screened. rn 17:41 Differential diagnosis: closed head injury, sprain, strain, unintentional overdose. rn Data reviewed: vital signs, nurses notes, lab test result(s), radiologic studies, CT scan, and as a result, I will discharge patient. Counseling: I had a detailed discussion with the patient and/or guardian regarding: the historical points, exam findings, and any diagnostic results supporting the discharge/admit diagnosis, lab results, radiology results, the need for outpatient follow up, to return to the emergency department if symptoms worsen or persist or if there are any questions or concerns that arise at home. Response to treatment: the patient's symptoms have mildly improved after treatment, and as a result, I will discharge patient. Special discussion: Based on the patient's history, exam and DX evaluation, there is no indication for emergent intervention or inpatient TX. It is understood by the patient/guardian that if the SXs persist or worsen they need to return immediately for re-evaluation. I discussed with the patient/guardian in detail that at this point there is no indication for admission to the hospital. It is understood, however, that if the symptoms persist or worsen the patient needs to return immediately for re-evaluation. ED course: Pt ambulatory, ct head/cspine/face negative, tyleno level 23 4 hours post ingestion, non-toxic, will dc home. Still denies suicide attempt or ideation.. 01/21 14:07 Order name: CBC with Diff; Complete Time: 15:33 01/21 14:07 Order name: BMP; Complete Time: 15:33 01/21 14:07 Order name: LFT's; Complete Time: 15:33 01/21 14:07 Order name: PT-INR; Complete Time: 15:33 01/21 14:09 Order name: Salicylate; Complete Time: 17:41 01/21 14:10 Order name: Acetaminophen: draw at 5pm; Complete Time: 17:41 01/21 14:05 Order name: CT Head C Spine; Complete Time: 15:55 01/21 14:05 Order name: CT Facial Bones W/O Con; Complete Time: 15:58 01/21 14:07 Order name: IV Start; Complete Time: 14:15 01/21 14:07 Order name: EKG; Complete Time: 14:07 01/21 17:08 Order name: Urine Dipstick--Ancillary (enter results) 01/21 17:08 Order name: Urine --Ancillary (enter results) 01/21 14:07 Order name: EKG - Nurse/Tech; Complete Time: 14:15 01/21 14:09 Order name: Urine Test (obtain specimen); Complete Time: 17:20 01/21 14:09 Order name: Urine Dipstick-Ancillary (obtain specimen); Complete Time: 17:20 rn Administered Medications: 14:18 Drug: NS 0.9% 1000 ml Route: IV; Rate: 1000 ml; Site: right hand; bp 17:50 Follow up: IV Status: Completed infusion; IV Intake: 1000ml bp 15:34 Drug: Potassium Chloride 40 mEq Route: PO; 17:20 Follow up: Response: No adverse reaction bp Disposition: 01/21/19 17:43 Discharged to Home. Impression: Superficial injury of head, Strain of muscle, fascia and tendon at neck level, Facial contusion. - Condition is Stable. - Discharge Instructions: Head Injury, Adult, Cervical Sprain, [id number]. - Medication Reconciliation Form, Thank You Letter, Antibiotic Education, Prescription Opioid Use form. - Follow up: Private Physician; When: As needed; Reason: Recheck today's complaints, Re-evaluation by your physician. - Problem is new. - Symptoms have improved. Signatures: Dispatcher [employer] EDMS Saad Pennington MD MD rn Attema, Lee, RN RN la1 Robby Barrios RN RN Dmitriy Wen RN RN bp Corrections: (The following items were deleted from the chart) 17:52 17:43 01/21/2019 17:43 Discharged to Home. Impression: Superficial injury of head; bp Strain of muscle, fascia and tendon at neck level; Facial contusion. Condition is Stable. Forms are Medication Reconciliation Form, Thank You Letter, Antibiotic Education, Prescription Opioid Use. Follow up: Private Physician; When: As needed; Reason: Recheck today's complaints, Re-evaluation by your physician. Problem is new. Symptoms have improved. rn
--- NOTE | 2019-01-21 17:43 | ER ---
Nurse's Notes [facility] Name: Aleyda Barker Age: 23 yrs Sex: Female : 1995 Arrival Date: 01/21/2019 Time: 13:45 Bed 7 Private MD: Diagnosis: Superficial injury of head;Strain of muscle, fascia and tendon at neck level;Facial contusion Presentation: 01/21 13:50 Presenting complaint: Patient states: Last night I fell down about 6 steps while I was la1 drinking. One hour ago I was hurting all over so I took six extra strength tylenol, 2 excedrine, and 5 bactrim. Pt denies SI or thoughts of self harm. States she just wanted to feel better and then started feeling funny and family stated she should come in. Transition of care: patient was not received from another setting of care. Onset of symptoms was January 21, 2019. Risk Assessment: Do you want to hurt yourself or someone else? Patient reports no desire to harm self or others. Initial Sepsis Screen: Does the patient meet any 2 criteria? No. Patient's initial sepsis screen is negative. Does the patient have a suspected source of infection? No. Patient's initial sepsis screen is negative. Care prior to arrival: None. 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 - Social history:: Smoking status: Patient uses tobacco products, denies chronic smoking, but will smoke occasionally. - Ebola Screening: : No symptoms or risks identified at this time. - Family history:: not pertinent. - Hospitalizations: : No recent hospitalization is reported. Screenin:55 Abuse screen: Denies threats or abuse. Denies injuries from another. Nutritional bp screening: No deficits noted. Tuberculosis screening: No symptoms or risk factors identified. Fall Risk Fall in past 12 months (25 points). No secondary diagnosis (0 pts). IV access (20 points). Ambulatory Aid- None/Bed Rest/Nurse Assist (0 pts). Gait- Normal/Bed Rest/Wheelchair (0 pts) Mental Status- Oriented to own ability (0 pts). Total Woodard Fall Scale indicates High Risk Score (45 or more points). Fall prevention measures have been instituted. Side Rails Up X 2 Placed Close to Nursing Station Frequent Obs/Assessments Occuring Family Present and informed to notify staff if the need to leave the bedside As available patient and family educated on Fall Prevention Program and Strategies. Assessment: 13:55 General: Appears in no apparent distress. comfortable, Behavior is cooperative, bp appropriate for age, anxious. Pain: Complains of pain in face. Neuro: Level of Consciousness is awake, alert, obeys commands, Oriented to person, place, time, situation, Appropriate for age. Cardiovascular: No deficits noted. Respiratory: Airway is patent Respiratory effort is even, unlabored, Respiratory pattern is regular, symmetrical. GI: No signs and/or symptoms were reported involving the gastrointestinal system. : No signs and/or symptoms were reported regarding the genitourinary system. EENT: No deficits noted. Derm: No deficits noted. Musculoskeletal: Circulation, motion, and sensation intact. Range of motion: intact in all extremities. 16:14 Reassessment: 4 HR LABS PENDING, PT ANXIOUS/TEARFUL WITH FAMILY. bp 17:50 Reassessment: PT D/C HOME AMBULATORY WITH FAMILY, DX WITH SUPERFICIAL HEAD INJURY. bp Vital Signs: 13:53 BP 125 / 82; Pulse 105; Resp 18; Temp 97.8; Pulse Ox 98% on R/A; Weight 104.33 kg; la1 Height 5 ft. 6 in. (167.64 cm); Pain 0/10; 16:13 BP 126 / 77; Pulse 103; Resp 16; Pulse Ox 98% ; bp 17:50 BP 131 / 75; Pulse 95; Resp 16; Temp 98; Pulse Ox 99% ; bp 13:53 Body Mass Index 37.12 (104.33 kg, 167.64 cm) la1 ED Course: 13:45 Patient arrived in ED. as 13:53 Triage completed. la1 13:54 Arm band placed on left wrist. la1 13:55 Saad Pennington MD is Attending Physician. rn 13:55 Patient has correct armband on for positive identification. Bed in low position. Call bp light in reach. Side rails up X2. Adult w/ patient. 14:02 Dmitriy Wen, RN is Primary Nurse. bp 14:10 Radiology exam delayed due to test not completed at this time. mw3 14:17 Inserted saline lock: 20 gauge in right wrist, using aseptic technique. bp 15:38 CT completed. Patient tolerated procedure well. Patient moved to CT via wheelchair. mw3 Patient moved back from CT. 15:39 CT Head C Spine In Process Unspecified. EDMS 15:40 CT Facial Bones W/O Con In Process Unspecified. EDMS 17:51 No provider procedures requiring assistance completed. IV discontinued, intact, bp bleeding controlled, No redness/swelling at site. Pressure dressing applied. Administered Medications: 14:18 Drug: NS 0.9% 1000 ml Route: IV; Rate: 1000 ml; Site: right hand; bp 17:50 Follow up: IV Status: Completed infusion; IV Intake: 1000ml bp 15:34 Drug: Potassium Chloride 40 mEq Route: PO; hj 17:20 Follow up: Response: No adverse reaction bp Intake: 17:50 IV: 1000ml; Total: 1000ml. bp Outcome: 17:43 Discharge ordered by . rn 17:51 Discharged to home ambulatory, with family. bp 17:51 Condition: stable 17:51 Discharge instructions given to patient, Instructed on discharge instructions, follow up and referral plans. Demonstrated understanding of instructions, follow-up care. 17:52 Patient left the ED. bp Signatures: Dispatcher [employer] Iva Real Roman, MD MD rn Attema, Lee, RN RN laRobby Bullock RN RN Dmitriy Wen, Peggy Fofana RN mw3
[2019-01-21 18:09] LABS: Urine Blood NEGATIVE (NEG); Urine Glucose NEGATIVE (NEG); Urine Protein NEGATIVE (NEG)
--- NOTE | 2019-01-22 07:07 | EKG ---
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
== END 2019-01-21 17:52 | disposition home or self-care (01) ==
LOC: ER 13:45
DX: S16.1XXA Strain of muscle, fascia and tendon at neck level, initial encounter (principal); S00.83XA Contusion of other part of head, initial encounter; W10.8XXA Fall (on) (from) other stairs and steps, initial encounter; Y93.89 Activity, other specified; Y92.9 Unspecified place or not applicable; Z72.0 Tobacco use
CPT/HCPCS: 36415; 70450; 70486; 72125; 76377; 80048; 80076; 80329; 81003; 81025; 85025; 85610; 93005; J7030

== ENCOUNTER 2019-02-09 11:21 | Emergency (ER) | payer SELFPAY ==
--- NOTE | 2019-02-09 13:23 | ER ---
Nurse's Notes [facility] Name: Aleyda Barker Age: 23 yrs Sex: Female : 1995 Arrival Date: 02/09/2019 Time: 11:22 Bed Waiting Private MD: Diagnosis: Presentation: 02/09 11:29 Presenting complaint: Patient states: "I got a cut on my toe right where it bends and I ss think it's getting infected." Injury occurred last Tuesday. Transition of care: patient was not received from another setting of care. Complicating Factors: There are no complicating factors for this patient. Onset of symptoms was February 03, 2019. Risk Assessment: Do you want to hurt yourself or someone else? Patient reports no desire to harm self or others. Initial Sepsis Screen: Does the patient meet any 2 criteria? No. Patient's initial sepsis screen is negative. Does the patient have a suspected source of infection? No. Patient's initial sepsis screen is negative. Care prior to arrival: None. 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 - Social history:: Smoking status: Patient/guardian denies using tobacco. - Ebola Screening: : Patient denies exposure to infectious person Patient denies travel to an Ebola-affected area in the 21 days before illness onset. Vital Signs: 11:30 BP 102 / 63; Pulse 96; Resp 15; Temp 99.0(TE); Pulse Ox 98% on R/A; Weight 102.06 kg; ss Height 5 ft. 6 in. (167.64 cm); Pain 6/10; 11:30 Body Mass Index 36.32 (102.06 kg, 167.64 cm) ED Course: 11:22 Patient arrived in ED. as 11:30 Triage completed. ss 11:30 Arm band placed on right wrist. 13:23 Brodie Horne MD is Attending Physician. aa5 Administered Medications: No medications were administered Outcome: 13:23 Patient left the ED. aa5 Signatures: Iva Moseley as Idania Valente, HEMAL RN aa5 Gosia Calvillo RN RN ss Corrections: (The following items were deleted from the chart) 13: Idania Valente, RN is Primary Nurse. aa5 aa5
== END 2019-02-09 13:23 | disposition left against medical advice (07) ==
LOC: ER 11:21
DX: Z53.21 Procedure and treatment not carried out due to patient leaving prior to being seen by health care provider (principal)
CPT/HCPCS: 99281

== ENCOUNTER 2019-02-09 17:03 | Emergency (ER) | payer SELFPAY ==
[2019-02-09 18:59] LABS: Absolute Lymphocytes (CBC) 2.6 K/uL (0.7-4.9); Absolute Monocytes 0.9 K/uL (0.1-1.3); Absolute Neutrophil 8.6 K/uL (1.8-8.0); Basophils % 0.3 % (0-1.3); Eosinophils % 2.5 % (0-4.4); Hematocrit 40.1 % (36.0-45.0); MPV 8.1 fL (7.6-11.3); Monocytes % 7.4 % (3.3-12.3); RBC Red Blood Cell Count 4.83 M/uL (3.86-4.86)
[2019-02-09 19:18] LABS: ALT/SGPT 32 U/L (12-78); AST/SGOT 14 U/L (15-37); Albumin 3.8 g/dL (3.4-5.0); Alkaline Phosphatase 94 U/L (45-117); BUN Blood Urea Nitrogen 9 mg/dL (7-18); Bicarbonate 27 mmol/L (21-32); Bilirubin Total 0.6 mg/dL (0.2-1.0); Glucose Level 98 mg/dL (74-106); Potassium 3.3 mmol/L (3.5-5.1); Protein, Total 8.7 g/dL (6.4-8.2); Sodium Level 143 mmol/L (136-145)
--- NOTE | 2019-02-09 19:52 | RAD REPORT ---
EXAM DESCRIPTION: RAD - Foot Right 3 View - 02/09/2019 6:28 pm CLINICAL HISTORY: Laceration, possible soft tissue infection, foot pain COMPARISON: None. FINDINGS: No fracture, dislocation or periosteal reaction. No acute bone or joint finding. No air or foreign body in the soft tissues. IMPRESSION: No air or foreign body in the soft tissues. No acute bone or joint finding.
--- NOTE | 2019-02-09 20:54 | ER ---
Nurse's Notes [facility] Name: Aleyda Barker Age: 23 yrs Sex: Female : 1995 Arrival Date: 02/09/2019 Time: 17:04 Bed 8 Private MD: Diagnosis: Cellulitis of Foot Presentation: 02/09 17:14 Presenting complaint: Patient states: Pt believes she may have an infection to her toes ss after a laceration that occurred 5-6 days ago. Transition of care: patient was not received from another setting of care. Onset of symptoms was January 04, 2019. Risk Assessment: Do you want to hurt yourself or someone else? Patient reports no desire to harm self or others. Initial Sepsis Screen: Does the patient meet any 2 criteria? No. Patient's initial sepsis screen is negative. Does the patient have a suspected source of infection? No. Patient's initial sepsis screen is negative. Care prior to arrival: None. 17:14 Method Of Arrival: Ambulatory ss 17:14 Acuity: HOLLAND 4 ss Historical: - Allergies: 17:15 No Known Allergies; ss - Home Meds: 17:15 None [Active]; ss - PMHx: 17:15 None; ss - PSHx: 17:15 None; ss - Immunization history:: Adult Immunizations up to date. - Social history:: Smoking status: Patient/guardian denies using tobacco. - Ebola Screening: : Patient denies exposure to infectious person Patient denies travel to an Ebola-affected area in the 21 days before illness onset. Screenin:12 Abuse screen: Denies threats or abuse. Nutritional screening: No deficits noted. tw2 Tuberculosis screening: No symptoms or risk factors identified. Fall Risk None identified. Assessment: 18:16 General: Appears in no apparent distress. well groomed, Behavior is calm, cooperative, tw2 appropriate for age. Pain: Complains of pain in right foot. Neuro: Level of Consciousness is awake, alert, obeys commands, Oriented to person, place, time, situation. Cardiovascular: Patient's skin is warm and dry. Respiratory: Airway is patent Respiratory effort is even, unlabored, Respiratory pattern is regular, symmetrical. GI: No signs and/or symptoms were reported involving the gastrointestinal system. : No signs and/or symptoms were reported regarding the genitourinary system. EENT: No signs and/or symptoms were reported regarding the EENT system. Derm: Wound noted right foot Wound is maceration noted to middle toe, skin in not intact in various places, pt had multiple bandaids on. Musculoskeletal: Range of motion: intact in all extremities. 19:04 Reassessment: Patient appears in no apparent distress at this time. No changes from tw2 previously documented assessment. Patient and/or family updated on plan of care and expected duration. Pain level reassessed. Patient is alert, oriented x 3, equal unlabored respirations, skin warm/dry/pink. 19:20 Reassessment: Patient appears in no apparent distress at this time. Patient and/or cc3 family updated on plan of care and expected duration. Pain level reassessed. Patient is alert, oriented x 3, equal unlabored respirations, skin warm/dry/pink. Received this female patient from morning shift RN Anita as a case of infected right foot wound. With IV cannula gauge 22 at the left ACV saline locked. 20:18 Reassessment: Patient appears in no apparent distress at this time. Patient and/or cc3 family updated on plan of care and expected duration. Pain level reassessed. Patient is alert, oriented x 3, equal unlabored respirations, skin warm/dry/pink. 21:11 Reassessment: Patient appears in no apparent distress at this time. No changes from ak1 previously documented assessment. Patient and/or family updated on plan of care and expected duration. Pain level reassessed. Patient is alert, oriented x 3, equal unlabored respirations, skin warm/dry/pink. pt verbalized understanding of discharge instructions and to follow up with general surgeon or return if needed. Vital Signs: 17:15 BP 113 / 67; Pulse 87; Resp 15; Temp 99.2; Pulse Ox 97% on R/A; Weight 102.06 kg; ss Height 5 ft. 6 in. (167.64 cm); Pain 5/10; 19:01 BP 87 / 73; Pulse 86; Resp 18; Pulse Ox 99% on R/A; tw2 19:20 BP 106 / 68; Pulse 74; Resp 18 S; Temp 98.2(O); Pulse Ox 99% on R/A; cc3 20:20 BP 116 / 81; Pulse 80; Resp 16 S; Pulse Ox 100% on R/A; cc3 21:12 BP 126 / 89; Pulse 79; Resp 16; Temp 98.2; Pulse Ox 100% on R/A; ak1 17:15 Body Mass Index 36.32 (102.06 kg, 167.64 cm) ED Course: 17:04 Patient arrived in ED. as 17:15 Triage completed. ss 17:15 Arm band placed on right wrist. 18:00 Call light in reach. Pulse ox on. NIBP on. tw2 18:03 Elena Lewis, RN is Primary Nurse. 18:15 Magdi Ledesma PA is PHCP. [facility] 18:15 Brodie Horne MD is Attending Physician. jmm 18:27 Foot Right 3 View XRAY In Process Unspecified. EDMS 18:50 Inserted saline lock: 22 gauge in left antecubital area, using aseptic technique. Blood tw2 collected. 19:05 Report given to HEMAL Negro. tw2 20:53 Sánchez Anderson MD is Referral Physician. jmm 21:10 No provider procedures requiring assistance completed. IV discontinued, intact, ak1 bleeding controlled, No redness/swelling at site. Pressure dressing applied. Administered Medications: No medications were administered Outcome: 20:53 Discharge ordered by . [facility] 21:10 Discharged to home via wheelchair, with family. ak1 21:10 Condition: good 21:10 Discharge instructions given to patient, family, Instructed on discharge instructions, follow up and referral plans. no drinking with medication, no driving heavy equipment, medication usage, wound care, Demonstrated understanding of instructions, follow-up care, medications, Prescriptions given X 1. 21:13 Patient left the ED. ak1 Signatures: Dispatcher [employer] EDMS Magdi Ledesma PA PA jmm Martinez, Amelia as Smirch, Shelby, RN RN Shikha Hooker RN RN ak1 Elena Lewis, HEMAL RECIO Anita Godoy RN RN tw2 Sruthi Myers cc3
--- NOTE | 2019-02-09 20:54 | EDPHYS ---
Physician Documentation [facility] Name: Aleyda Barker Age: 23 yrs Sex: Female : 1995 Arrival Date: 02/09/2019 Time: 17:04 Bed 8 Private MD: ED Physician Brodie Horne HPI: 02/09 18:16 This 23 yrs old Other Female presents to ER via Ambulatory with complaints of Foot jmm Problem. 18:16 The patient presents with an injury, pain, swelling. Onset: The symptoms/episode jmm began/occurred acutely, 5 day(s) ago. This is a 23 year old female with no chronic medical conditions that presents to the ED with complaints of swelling to the plantar surface of her right foot. Patient states she cut her foot while walking on a gravel road. Patient denies fever. Denies chills. Patient swelling began this past Tuesday. . Historical: - Allergies: 17:15 No Known Allergies; ss - Home Meds: 17:15 None [Active]; ss - PMHx: 17:15 None; ss - PSHx: 17:15 None; ss - Immunization history:: Adult Immunizations up to date. - Social history:: Smoking status: Patient/guardian denies using tobacco. - Ebola Screening: : Patient denies exposure to infectious person Patient denies travel to an Ebola-affected area in the 21 days before illness onset. ROS: 18:16 Constitutional: Negative for fever, chills, and weight loss, Cardiovascular: Negative jmm for chest pain, palpitations, and edema, Respiratory: Negative for shortness of breath, cough, wheezing, and pleuritic chest pain. 18:16 MS/extremity: Positive for pain. 18:16 All other systems are negative. Exam: 18:16 Constitutional: This is a well developed, well nourished patient who is awake, alert, jmm and in no acute distress. Head/Face: atraumatic. Eyes: EOMI, no conjunctival erythema appreciated ENT: Moist Mucus Membranes Neck: Trachea midline, Supple Chest/axilla: Normal chest wall appearance and motion. Cardiovascular: Regular rate and rhythm. No edema appreciated Respiratory: Normal respirations, no respiratory distress appreciated Abdomen/GI: Non distended, soft Back: Normal ROM 18:16 Skin: lacerations noted to the right 2nd and 3rd web spaces. Vital Signs: 17:15 BP 113 / 67; Pulse 87; Resp 15; Temp 99.2; Pulse Ox 97% on R/A; Weight 102.06 kg; ss Height 5 ft. 6 in. (167.64 cm); Pain 5/10; 19:01 BP 87 / 73; Pulse 86; Resp 18; Pulse Ox 99% on R/A; tw2 19:20 BP 106 / 68; Pulse 74; Resp 18 S; Temp 98.2(O); Pulse Ox 99% on R/A; cc3 20:20 BP 116 / 81; Pulse 80; Resp 16 S; Pulse Ox 100% on R/A; cc3 21:12 BP 126 / 89; Pulse 79; Resp 16; Temp 98.2; Pulse Ox 100% on R/A; ak1 17:15 Body Mass Index 36.32 (102.06 kg, 167.64 cm) ss MDM: 18:16 Patient medically screened. [facility] 20:51 Data reviewed: vital signs, nurses notes. Counseling: I had a detailed discussion with carmen the patient and/or guardian regarding: the historical points, exam findings, and any diagnostic results supporting the discharge/admit diagnosis, radiology results, the need for outpatient follow up, to return to the emergency department if symptoms worsen or persist or if there are any questions or concerns that arise at home. ED course: Patient is alert and non toxic in appearance. Patient will be treated for cellulitis. Advised to follow up with surgery for continued wound care. Patient was otherwise given strict return precautions. Patient understood and agrees with the plan of care. . 02/09 18:20 Order name: CBC with Diff; Complete Time: 19:49 [facility] 02/09 18:20 Order name: CMP; Complete Time: 19:49 [facility] 02/09 18:20 Order name: Foot Right 3 View XRAY; Complete Time: 19:56 [facility] 02/09 18:20 Order name: Procalcitonin; Complete Time: 19:49 [facility] 02/09 18:20 Order name: Saline Lock; Complete Time: 18:59 [facility] 02/09 20:18 Order name: Wound Care; Complete Time: 20:50 [facility] 02/09 20:18 Order name: Vital Signs; Complete Time: 20:50 [facility] Administered Medications: No medications were administered Disposition: 02/10 16:16 Co-signature as Attending Physician, Brodie Horne MD. Disposition: 02/09/19 20:53 Discharged to Home. Impression: Cellulitis of Foot. - Condition is Stable. - Discharge Instructions: Cellulitis, Adult. - Prescriptions for Clindamycin HCl 300 mg Oral Capsule - take 1 capsule by ORAL route every 6 hours for 10 days; 40 capsule. - Medication Reconciliation Form, Thank You Letter, Antibiotic Education, Prescription Opioid Use form. - Follow up: Sánchez Anderson MD; When: 2 - 3 days; Reason: Recheck today's complaints, Continuance of care, Re-evaluation by your physician. Signatures: Dispatcher [employer] EDMS Magdi Ledesma PA PA jmm Smirch, Shelby, RN RN Shikha Gutiérrez RN RN ak1 Brodie Horne MD MD Corrections: (The following items were deleted from the chart) 02/09 21:13 20:53 02/09/2019 20:53 Discharged to Home. Impression: Cellulitis of Foot. Condition is ak1 Stable. Forms are Medication Reconciliation Form, Thank You Letter, Antibiotic Education, Prescription Opioid Use. Follow up: Sánchez Anderson; When: 2 - 3 days; Reason: Recheck today's complaints, Continuance of care, Re-evaluation by your physician. carmen
== END 2019-02-09 21:13 | disposition home or self-care (01) ==
LOC: ER 17:03
DX: L03.115 Cellulitis of right lower limb (principal)
CPT/HCPCS: 36415; 80053; 84145; 85025; 99284